=== PATIENT | male | born 1975 | race Caucasian/White ===

== ENCOUNTER 2018-10-21 19:05 | Emergency (ER) | payer OTHER ==
[~2018-10-21] VITALS: Ht 182.9 cm; Wt 99.8 kg
[2018-10-21] MEDS ORDERED: BACTRIM DS TAB1 EACH PO (19:48)
[2018-10-21 20:04] VITALS: BP 128/64
== END 2018-10-21 20:04 | disposition home or self-care (01) ==
LOC: M.ERS 19:05
DX: L02.411 Cutaneous abscess of right axilla (principal)